=== PATIENT | female | born 1985 ===

== ENCOUNTER 2019-04-08 05:50 | Day surgery (SDC) | payer BC ==
[2019-04-08 06:48] VITALS: BMI 29.5
[2019-04-08] MEDS ORDERED: Propofol 10 mg/ml Inj (20 ML) ONE (07:33)
[2019-04-08] MEDS ORDERED: Midazolam 2 MG/2 ML VIAL ONE (07:33)
[2019-04-08] MEDS ORDERED: HYDROmorphone 0.5 mg/0.5 ml ISec IVP PRN (09:14)
--- NOTE | 2019-04-08 09:20 | PCM.OP ---
Operative Report - Operative Report Date of Surgery/Procedure: 04/08/19 Time of Surgery/Procedure: 08:50 Surgeon: marshal muñiz [employer] Operator Helper: none Anesthesia/Sedation: LMA general Pre-Operative Diagnosis: menorrhagia, post coital bleeding Post-Operative Diagnosis: same Indication for Surgery: menorrhagia, post coital bleeding Operative Findings: normal appearing endometrial and cervical lining Procedure/Operation Description: hysterosocpy, d&c, endometrial ablation Estimated Blood Loss: 50ml Complications: none Specimen: endometrial curettage Discharge & Condition: stable
[2019-04-08 12:21] VITALS: BP 112/69; PULSE 76; RESP 18; TEMP 97.8; O2SAT 96
--- NOTE | 2019-04-08 14:17 | OP ---
PROCEDURE DATE: 04/08/2019 PREOPERATIVE DIAGNOSIS: Menorrhagia and postcoital bleeding. POSTOPERATIVE DIAGNOSIS: Menorrhagia and postcoital bleeding. PROCEDURE PERFORMED: Hysteroscopy, dilatation and curettage, endometrial ablation using NovaSure device. SURGEON: Sameer Rosen MD TYPE OF ANESTHESIA: General LMA. ANESTHESIA ADMINISTERED BY: Dr. Brock. COMPLICATIONS: None. ESTIMATED BLOOD LOSS: 50 mL. SPECIMEN: Endometrial curettage. DESCRIPTION OF PROCEDURE: After informed consent was obtained, the patient was taken to the operating room and placed in dorsal supine position. General anesthesia was induced and the patient had an LMA IV placed without any difficulty. She was thereafter placed in dorsal lithotomy position and prepped and draped in the usual sterile manner. The urinary bladder was straight catheterized for approximately 50 mL of clear urine. A sterile speculum was then placed in the vagina and the anterior lip of the cervix was grasped with a single-tooth tenaculum. The cervix was gradually dilated and the hysteroscopy was performed. A smooth appearing endometrial lining and a smooth lining was noted. The hysteroscope was removed and sharp curettage was performed. Thereafter, the uterus was sounded and found to be 7.5 cm long. The cervical length was noted to be 3 cm. Thereafter, the decision was made to proceed with endometrial ablation. The NovaSure device was introduced into the patient's uterine cavity. The length was put as 4.5 cm. The width came out to be 3.5 cm after the device was deployed. Cavity integrity test was performed and the cavity was found to be . The ablation device was thereafter turned on and endometrial ablation was performed. The duration of ablation was 49 seconds. The collar from the device was deployed and then the device was removed intact. The tenaculum was removed from the anterior lip of the cervix. The tenaculum site was noted to be hemostatic. The speculum was removed. The patient was thereafter taken out of the lithotomy position. She was cleaned, extubated and taken to the recovery room in stable condition. Sameer Rosen MD
== END 2019-04-08 13:52 | disposition home or self-care (01) ==
LOC: C.SDS 05:50
PROVIDERS: ATTEND Student in an Organized Health Care Education/Training Program
DX: N92.0 Excessive and frequent menstruation with regular cycle (principal); N93.0 Postcoital and contact bleeding
CPT/HCPCS: 58563; 88305; J1100; J1170; J2250; J2405; J2704; J3010